=== PATIENT | male | born 1985 | race Caucasian/White ===

== ENCOUNTER 2021-07-04 16:31 | Emergency (ER) | payer SELFPAY ==
[~2021-07-04] VITALS: Ht 182.9 cm; Wt 83.6 kg
--- NOTE | 2021-07-04 17:17 | EKG ---
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
[2021-07-04] MEDS ORDERED: LORazepam 1 MG TABLET PO ONE (17:30)
[2021-07-04 17:31] LABS: CALCIUM 9.6 mg/dL (8.5-10.1); GFR 85.5; POTASSIUM 3.8 mmol/L (3.5-5.1)
[2021-07-04 17:33] LABS: BASO % 0 % (0-3); EOS % 0 % (0-3); HEMATOCRIT 44.4 % (39.0-53.0); LYMPH # 1.3 x10^3/uL (1.0-4.8); LYMPH % 17 % (24-48); MEAN CORPUSCULAR HEMOGLOBIN 31 pg (25-35); MEAN CORPUSCULAR HGB CONC 34 g/dL (31-37); MEAN CORPUSCULAR VOLUME 93 fL (79-100); MONO # 0.5 x10^3/uL (0.0-1.1); MONO % 7 % (0-9); NEUT # 5.8 x10^3uL (1.8-7.7); NEUT % 76 % (31-73); PLATELET COUNT 230 x10^3/uL (140-400); RED BLOOD COUNT 4.77 x10^6/uL (4.30-5.70); RED CELL DISTRIBUTION WIDTH 13.2 % (11.5-14.5); WHITE BLOOD COUNT 7.6 x10^3/uL (4.0-11.0)
[2021-07-04 17:45] VITALS: BP 134/51
[2021-07-04] MEDS ORDERED: LORA-254 PO (17:56)
--- NOTE | 2021-07-04 17:58 | PHYS DOC ---
Past History Past Surgical History: No Surgical History (ROD HAMILTON) Alcohol Use: None (ROD HAMILTON) General Adult EDM: Chief Complaint: Palpitations HPI: HPI: Patient is a 36 year old male who presents with palpitations. Patient states for the past week, he has intermittent palpitations that last 10 to 15 minutes at random times throughout the day. Additionally, he reports a 3-day history of intermittent left upper extremity numbness that goes from his wrist up to his shoulder. He states that he tends to "worry a lot in general," and that he has been under more stress recently. He was seen at urgent care today for evaluation of palpitations, but was not satisfied with the work-up provided. He was offered medication to take whenever he feels palpitations, but he was reluctant to take the medication without having further cardiac evaluation. Patient denies diaphoresis, headache, chest pain, shortness of breath, cough. Patient has no other complaints at this time. (ROD HAMILTON) Review of Systems: Review of Systems: Constitutional: Denies fever or chills Eyes: Denies change in visual acuity HENT: Denies nasal congestion or sore throat Respiratory: See HPI Cardiovascular: See HPI GI: Denies abdominal pain, nausea, vomiting, bloody stools or diarrhea Musculoskeletal: Denies back pain or joint pain Neurologic: Denies headache, focal weakness or sensory changes Psychiatric: See HPI (ROD HAMILTON) Current Medications: Current Meds: Current Medications Medications (Trade) Dose Ordered Sig/Lena Start Time Stop Time Status Last Admin Dose Admin Lorazepam (Ativan) 2 mg 1X ONCE 07/04/21 17:30 07/04/21 17:31 DC 07/04/21 17:44 2 MG (ROD HAMILTON) Allergies: Allergies: Allergies Coded Allergies Type Severity Reaction Last Updated Verified No Known Drug Allergies 07/04/21 No (ROD HAMILTON) Physical Exam: PE: Constitutional: Well developed, well nourished, non-toxic appearance. Neck: Normal range of motion, no tenderness, supple, no stridor. Cardiovascular:Heart rate regular rhythm, no murmur. Lungs & Thorax: Bilateral breath sounds clear to auscultation. Skin: Warm, dry, no erythema, no rash. Extremities: No tenderness, no cyanosis, no clubbing, ROM intact, no edema. Neurologic: Alert and oriented X 3, normal motor function, normal sensory function, no focal deficits noted. Psychologic: Anxious affect, judgement normal, mood normal. (ROD HAMILTON) Current Patient Data: Labs: Laboratory Tests Test 07/04/21 16:52 White Blood Count 7.6 x10^3/uL (4.0-11.0) Red Blood Count 4.77 x10^6/uL (4.30-5.70) Hemoglobin 15.0 g/dL (13.0-17.5) Hematocrit 44.4 % (39.0-53.0) Mean Corpuscular Volume 93 fL (79-100) Mean Corpuscular Hemoglobin 31 pg (25-35) Mean Corpuscular Hemoglobin Concent 34 g/dL (31-37) Red Cell Distribution Width 13.2 % (11.5-14.5) Platelet Count 230 x10^3/uL (140-400) Neutrophils (%) (Auto) 76 % (31-73) H Lymphocytes (%) (Auto) 17 % (24-48) L Monocytes (%) (Auto) 7 % (0-9) Eosinophils (%) (Auto) 0 % (0-3) Basophils (%) (Auto) 0 % (0-3) Neutrophils # (Auto) 5.8 x10^3uL (1.8-7.7) Lymphocytes # (Auto) 1.3 x10^3/uL (1.0-4.8) Monocytes # (Auto) 0.5 x10^3/uL (0.0-1.1) Eosinophils # (Auto) 0.0 x10^3/uL (0.0-0.7) Basophils # (Auto) 0.0 x10^3/uL (0.0-0.2) Sodium Level 137 mmol/L (136-145) Potassium Level 3.8 mmol/L (3.5-5.1) Chloride Level 101 mmol/L (98-107) Carbon Dioxide Level 26 mmol/L (21-32) Anion Gap 10 (6-14) Blood Urea Nitrogen 15 mg/dL (8-26) Creatinine 1.0 mg/dL (0.7-1.3) Estimated GFR (Cockcroft-Gault) 85.5 Glucose Level 103 mg/dL (70-99) H Calcium Level 9.6 mg/dL (8.5-10.1) Creatine Kinase Pending Creatine Kinase MB (Mass) Pending Creatine Kinase MB Relative Index Pending Troponin I Quantitative < 0.017 ng/mL (0-0.055) Vital Signs: Vital Signs Date Time Temp Pulse Resp B/P (MAP) Pulse Ox O2 Delivery O2 Flow Rate FiO2 07/04/21 16:35 98.1 64 22 143/78 (99) 99 Room Air (ROD HAMILTON) EKG: EKG: EKG Interpreted by Dr. Cuba: Regular rate 70bpm and rhythm with no ectopic beats. No concerning ST-T wave changes. Regular QR interval. (ROD HAMILTON) Heart Score: C/O Chest Pain: No (ROD HAMILTON) Course & Med Decision Making: Course & Med Decision Making Pertinent Labs and Imaging studies reviewed. (See chart for details) Patient history and presentation is suggestive of anxiety versus cardiac etiology. Cardiac enzymes and EKG will be evaluated. Patient will be provided Ativan in the department. Patient seems self-aware and the fact that he is likely experiencing an anxiety attack however seeks reassurance that it is not cardiac related. He was reassured that we will rule out any acute or life- threatening cardiac illness. Patient was informed of laboratory findings and provided with referral to Dr. Milan for primary care. Patient is agreeable to discharge plan. (ROD HAMILTON) Dragon Disclaimer: Dragon Disclaimer: This electronic medical record was generated, in whole or in part, using a voice recognition dictation system. (ROD HAMILTON) Departure Departure: Impression: Primary Impression: Anxiety Disposition: HOME / SELF CARE / HOMELESS Condition: STABLE Referrals: PCP,NO (PCP) JOE ESCALONA MD Patient Instructions: Anxiety and Panic Attacks, [id number] Additional Instructions: A primary care physician contact phone number was provided. His name is Dr. Lutz and is very familiar with [facility]. You may call to schedule an appointment with him at your convenience. He will have access to your records from your visit today, so that he may address your complaints. Pl ease return to the emergency department if you experience chest pain or have a return of symptoms. Scripts Lorazepam (ATIVAN) 1 Mg Tablet 1 TAB PO PRN PRN for ANXIETY MDD 2 Tablet(s), #10 TAB 0 Refills Take 1 tablet by mouth as needed for anxiety. Do not take more than 2 tablets in 1 day. Prov: ROD HAMILTON 07/04/21 Attending Signature Attending Signature I have participated in the care of this patient and I have reviewed and agree with all pertinent clinical information above including history, exam, and recommendations. (REY NASCIMENTO MD) ROD HAMILTON Jul 04, 2021 17:58 REY NASCIMENTO MD Jul 08, 2021 00:20
== END 2021-07-04 18:20 | disposition home or self-care (01) ==
LOC: ER 16:36
DX: F41.9 Anxiety disorder, unspecified (principal)
CPT/HCPCS: 36415; 80048; 82553; 84484; 85025; 93005; 99284

== ENCOUNTER → 2021-07-06 | Outpatient (CLI) | payer SELFPAY ==
[2021-07-04 17:45] VITALS: BP 134/51
[~2021-07-06] MED LIST: LORA-254 PO
--- NOTE | 2021-07-06 13:19 | RAD ---
Examination: Left Lower Extremity Venous Doppler Ultrasound History: Left leg swelling Comparison: None Procedure: Stanford scale, color flow 2D and spectal waveform analysis images are obtained with and witho ut compression in the area of the common femoral vein, superficial femoral vein - femoral vein juncti on, main femoral vein (superficial femoral vein) and popliteal vein. Veins of the proximal calf are a lso imaged. Findings: There is normal duplex flow, color flow and compressibility of all visualized vein segments. No evide nce of deep venous thrombus is present. Impression: No evidence of DVT in the left lower extremity venous system. Electronically signed by: Karthik Hector MD (07/06/2021 1:17 PM) [id number]
== END ==
LOC: US 12:31
PROVIDERS: ATTEND Family Medicine
DX: R22.42 Localized swelling, mass and lump, left lower limb (principal)
CPT/HCPCS: 93971

== ENCOUNTER 2021-10-22 07:58 | Emergency (ER) | payer SELFPAY ==
[~2021-10-22] VITALS: Ht 182.9 cm; Wt 83.6 kg
[2021-10-22 09:55] VITALS: BP 134/78
--- NOTE | 2021-10-22 11:12 | RAD ---
EXAM: Right lower extremity venous Doppler sonogram. HISTORY: Paresthesia. Pain and swelling. TECHNIQUE: Stanford scale and color Doppler sonographic evaluation of the right lower extremity veins wit h spectral waveform analysis was performed. FINDINGS: There is normal color flow, normal compressibility and there are normal spectral waveforms in the common femoral, superficial femoral, popliteal, posterior tibial and greater saphenous veins. IMPRESSION: No Doppler evidence of lower extremity deep venous thrombosis. Electronically signed by: Lindsay Wilkins MD (10/22/2021 11:10 AM) [id number]
--- NOTE | 2021-10-22 11:23 | PHYS DOC ---
Past History Past Medical History: No Pertinent History (BEN CARTER APRN) Past Surgical History: No Surgical History (BEN CARTER APRN) Alcohol Use: None (BEN CARTER APRN) General Adult EDM: Chief Complaint: LOWER EXT PAIN HPI: HPI: Patient is a 36-year-old male that presents today with a weird sensation in his right leg. Patient states that he has had sensations over the last 6 months in his right leg he said last night and earlier this morning he started experiencing the same thing and he decided to come to the emergency department to have it evaluated. Patient denies trauma. Patient states he feels a twinge and a tight feeling in his leg he states that the skin does change color but goes right back to normal as the sensation resides. Patient states that he has been having palpitations on and off for the last couple months and has been following up with his doctor at [facility] and they are godinez pposed to do a Holter monitor he is a do not had that done as of yet. Patient denies chest pain, shortness of air, fever or chills. (BEN CARTER APRN) Review of Systems: Review of Systems: Constitutional: Denies fever or chills Eyes: Denies change in visual acuity HENT: Denies nasal congestion or sore throat Respiratory: Denies cough or shortness of breath Cardiovascular: Denies chest pain or edema GI: Denies abdominal pain, nausea, vomiting, bloody stools or diarrhea : Denies dysuria Musculoskeletal: Right leg discomfort Integument: Denies rash Neurologic: Denies headache, focal weakness or sensory changes Endocrine: Denies polyuria or polydipsia Lymphatic: Denies swollen glands Psychiatric: Denies depression or anxiety (BEN CARTER APRN) Allergies: Allergies: Allergies Coded Allergies Type Severity Reaction Last Updated Verified No Known Drug Allergies 07/04/21 No (BEN CARTER APRN) Physical Exam: PE: Constitutional: Well developed, well nourished, no acute distress, non-toxic appearance. [] HENT: Normocephalic, atraumatic, bilateral external ears normal, oropharynx moist, no oral exudates, nose normal. [] Eyes: PERRLA, EOMI, conjunctiva normal, no discharge. [] Neck: Normal range of motion, no tenderness, supple, no stridor. [] Cardiovascular:Heart rate regular rhythm, no murmur [] Lungs & Thorax: Bilateral breath sounds clear to auscultation [] Abdomen: Bowel sounds normal, soft, no tenderness, no masses, no pulsatile masses. [] Skin: Warm, dry, no erythema, no rash. [] Back: No tenderness, no CVA tenderness. [] Extremities: No tenderness noted with palpation dorsalis pedis and posterior tib pulse is 2+, no edema noted no pain at this time. No lacerations, abrasions, contusions, or ecchymosis noted. Neurologic: Alert and oriented X 3, normal motor function, normal sensory function, no focal deficits noted. [] Psychologic: Affect normal, judgement normal, mood normal. [] (BEN CARTER APRN) Current Patient Data: Vital Signs: Vital Signs Date Time Temp Pulse Resp B/P (MAP) Pulse Ox O2 Delivery O2 Flow Rate FiO2 10/22/21 09:55 97.5 67 18 134/78 (96) 97 Room Air (BEN CARTER APRN) EKG: EKG: [] (BEN CARTER APRN) Radiology/Procedures: Radiology/Procedures: REASON: RT FOOT TINGLING PROCEDURE: VENOUS LOWER EXTREMITY RIGHT EXAM: Right lower extremity venous Doppler sonogram. HISTORY: Paresthesia. Pain and swelling. TECHNIQUE: Stanford scale and color Doppler sonographic evaluation of the right lower extremity veins with spectral waveform analysis was performed. FINDINGS: There is normal color flow, normal compressibility and there are normal spectral waveforms in the common femoral, superficial femoral, popliteal, posterior tibial and greater saphenous veins. IMPRESSION: No Doppler evidence of lower extremity deep venous thrombosis. Electronically signed by: Lindsay Wilkins MD (10/22/2021 11:10 AM) [id number][] (BEN CARTER APRN) Heart Score: C/O Chest Pain: N/A Risk Factors: Risk Factors: DM, Current or recent (<one month) smoker, HTN, HLP, family history of CAD, obesity. Risk Scores: Score 0 - 3: 2.5% MACE over next 6 weeks - Discharge Home Score 4 - 6: 20.3% MACE over next 6 weeks - Admit for Clinical Observation Score 7 - 10: 72.7% MACE over next 6 weeks - Early Invasive Strategies (BEN CARTER APRN) Course & Med Decision Making: Course & Med Decision Making Pertinent Labs and Imaging studies reviewed. (See chart for details) 1120 assessed patient in the triage area patient in no acute distress did review radiological studies with him and informed him that there was no evidence of a DVT at this time. Patient is to follow-up with Dr. Lutz by phone this afternoon get an appointment as soon as possible. Patient is agreeable with plan of care and verbalizes understanding. (BEN CARTER APRN) Dragon Disclaimer: Dragon Disclaimer: This electronic medical record was generated, in whole or in part, using a voice recognition dictation system. (BEN CARTER APRN) Attending Co-Sign The patient was seen and interviewed as well as examined at the bedside. The chart was reviewed. The case was discussed. Agree with the plan of care. (CARLOTTA STEINBERG DO) Departure Departure: Impression: Primary Impression: Leg pain Qualified Codes: M79.604 - Pain in right leg Disposition: HOME / SELF CARE / HOMELESS Condition: STABLE Referrals: JOE ESCALONA MD (PCP) Patient Instructions: Musculoskeletal Pain Additional Instructions: Follow-up with Dr. Lutz soon as possible. BEN CARTER APRN Oct 22, 2021 11:23 CARLOTTA STEINBERG DO Oct 23, 2021 06:31
== END 2021-10-22 11:26 | disposition home or self-care (01) ==
LOC: ER 07:58
DX: M79.604 Pain in right leg (principal); R00.2 Palpitations
CPT/HCPCS: 93971; 99284

== ENCOUNTER 2021-10-31 21:34 | Emergency (ER) | payer SELFPAY ==
[~2021-10-31] VITALS: Ht 182.9 cm; Wt 83.6 kg
--- NOTE | 2021-10-31 21:43 | PHYS DOC ---
Past History Past Medical History: No Pertinent History Past Surgical History: No Surgical History Alcohol Use: None Adult General Chief Complaint Chief Complaint: RAPID HEART RATE HPI HPI Patient is a 36-year-old male presenting via POV for palpitations. Reports he was at rest approximately 1 hour prior to arrival when he started experiencing generalized chest palpitations. Nothing known made better or worse. Patient denied any pain but reportedly felt anxious about the feelings prompting him to come in for evaluation. States he read online that it could be something with his aorta and he got freaked out after reading this article. Denies any significant medical issues but does admit distant history of methamphetamine abuse. He currently has an event monitor in place that has been present for past week without any reported events. Admits to smoking weed otherwise no tobacco, alcohol or other illicit drug use. States he is asymptomatic in ER just anxious about his aorta Review of Systems Review of Systems Fourteen body systems of review of systems have been reviewed. See HPI for pertinent positives and negative responses, other reynolds all other systems are negative, non-pertinent or non-contributory Allergies Allergies Allergies Coded Allergies Type Severity Reaction Last Updated Verified No Known Drug Allergies 07/04/21 No Physical Exam Physical Exam Constitutional: Well developed, well nourished, no acute distress, non-toxic appearance. Extensive odor of THC present HENT: Normocephalic, atraumatic, bilateral external ears normal, oropharynx moist, no oral exudates, nose normal. Eyes: PERRLA, EOMI, conjunctiva normal, no discharge. Neck: Normal range of motion, no tenderness, supple, no stridor. Cardiovascular: Heart rate regular, sinus rhythm, no murmurs rubs or gallops Lungs & Thorax: Bilateral breath sounds clear to auscultation Abdomen: Bowel sounds normal, soft, no tenderness, no masses, no pulsatile masses. Nonsurgical abdomen, no peritoneal signs Skin: Warm, dry, no erythema, no rash. Back: No tenderness, no CVA tenderness. Extremities: No tenderness, no cyanosis, no clubbing, ROM intact, no edema. Neurologic: Alert and oriented X 3, grossly normal motor & sensory function, no focal deficits noted. Psychologic: Anxious affect and mood Current Patient Data Vital Signs Vital Signs Date Time Temp Pulse Resp B/P (MAP) Pulse Ox O2 Delivery O2 Flow Rate FiO2 10/31/21 21:46 97.8 74 18 123/74 (90) 97 Room Air Vital Signs Date Time Temp Pulse Resp B/P (MAP) Pulse Ox O2 Delivery O2 Flow Rate FiO2 10/31/21 21:46 97.8 74 18 123/74 (90) 97 Room Air EKG EKG EKG ordered and interpreted by myself at 2145 hrs. is sinus rhythm at 69 bpm, unremarkable intervals, right axis deviation, no acute ischemic findings, no STEMI Radiology/Procedures Radiology/Procedures [] Heart Score C/O Chest Pain: No Risk Factors: Risk Factors: DM, Current or recent (<one month) smoker, HTN, HLP, family hi story of CAD, obesity. Risk Scores: Risk Factors: DM, Current or recent (<one month) smoker, HTN, HLP, family history of CAD, obesity. Course & Med Decision Making Course & Med Decision Making ABCs unremarkable HPI physical exam and electrocardiogram nonconcerning for any emergent or surgical issues Patient in middle of extensive outpatient work-up with monitor placed. He presents extremely anxious, extremely high and paranoid that his feelings of pa lpitations are related to his aorta I disclosed low likelihood of such pathology ongoing given his asymptomatic status at time of ER arrival. I discussed utility of further ER work-up that included blood work and imaging but ultimately this was deferred to outpatient setting. Strict return precautions discussed and understood by patient. Illicit drug abuse cessation advised prior to ER departure Dragon Disclaimer Dragon Disclaimer This electronic medical record was generated, in whole or in part, using a voice recognition dictation system. Departure Departure: Impression: Primary Impression: Anxiety about health Disposition: 01 HOME / SELF CARE / HOMELESS Condition: STABLE Referrals: JOE ESCALONA MD (PCP) Additional Instructions: As discussed prior to ER departure, your vitals physical exam and EKG were nonco ncerning for any emergent or surgical issues. You were monitored on cardiac monitors throughout entirety of ER visit with no concerning findings. As disclosed, your presenting symptoms are likely due to anxiety. There is no indication for further diagnostic work-up and/or need for hospitalization at present. You are on appropriate outpatient management and as disclosed, it is a dvise you contact your primary care physician first thing on Tuesday to review need for close outpatient follow-up. If any concerning signs or symptoms present prior to outpatient follow-up please do not hesitate to come back for repeat evaluation. It was a pleasure to take care of you and I wish you the best going forward SHAWNA BAGLEY DO Oct 31, 2021 21:43
[2021-10-31 21:46] VITALS: BP 123/74
--- NOTE | 2021-11-01 05:53 | EKG ---
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
[2021-11-01] MEDS ORDERED: CETI10CA PO (20:27)
== END 2021-10-31 22:20 | disposition home or self-care (01) ==
LOC: ER 21:34
DX: F41.9 Anxiety disorder, unspecified (principal); F15.10 Other stimulant abuse, uncomplicated
CPT/HCPCS: 93005; 99283

== ENCOUNTER 2021-11-01 20:12 | Emergency (ER) | payer SELFPAY ==
[~2021-11-01] VITALS: Ht 188 cm; Wt 90.0 kg
[2021-11-01 20:16] VITALS: BP 138/80
[2021-11-01] MEDS ORDERED: CETI10CA PO (20:27)
--- NOTE | 2021-11-01 20:50 | PHYS DOC ---
Past History Past Medical History: No Pertinent History Additional Past Medical Histor: palpatations (TARYN FAJARDO APRN) Past Surgical History: No Surgical History (TARYN FAJARDO APRN) Alcohol Use: None Social History Narrative: Last used today (TARYN FAJARDO APRN) General Adult EDM: Chief Complaint: Neck Pain HPI: HPI: Patient is a 36-year-old male presents with anxiety. Patient is concerned he has a knot on his left shoulder. Patient denies pain. Patient was just seen here yesterday and appears to be very anxious. Patient is currently wearing a Holter monitor due to feeling like his heart has been irregular. Patient has a history of palpitations. (TARYN FAJARDO APRN) Review of Systems: Review of Systems: ROS At least 10 ROS systems have been reviewed and are negative except as documented in the HPI. General: Negative except as outlined in HPI above. Skin: Negative except as outlined in HPI above. HEENT: Negative except as outlined in HPI above. Neck: Negative except as outlined in HPI above. Respiratory: Negative except as outlined in HPI above.. Cardiovascular: Negative except as outlined in HPI above. Abdomen: Negative except as outlined in HPI above. : Negative except as outlined in HPI above. Back/MSK: Negative except as outlined in HPI above. Neuro: Negative except as outlined in HPI above. Psych: Negative except as outlined in HPI above. (TARYN FAJARDO APRN) Allergies: Allergies: Allergies Coded Allergies Type Severity Reaction Last Updated Verified No Known Drug Allergies 11/01/21 No (TARYN FAJARDO APRN) Physical Exam: PE: Constitutional: Well developed, well nourished, no acute distress, non-toxic appearance. [] HENT: Normocephalic, atraumatic, bilateral external ears normal, oropharynx mois t, no oral exudates, nose normal. [] Eyes: PERRLA, EOMI, conjunctiva normal, no discharge. [] Neck: Normal range of motion, no tenderness, supple, no stridor. [] Cardiovascular:Heart rate regular rhythm, no murmur [] Lungs & Thorax: Bilateral breath sounds clear to auscultation [] Abdomen: Bowel sounds normal, soft, no tenderness, no masses, no pulsatile masses. [] Skin: Warm, dry, no erythema, no rash. [] Back: No tenderness, no CVA tenderness. [] Extremities: Left arm tenderness, ROM intact, no edema. [] Neurologic: Alert and oriented X 3, normal motor function, normal sensory function, no focal deficits noted. [] Psychologic: Affect normal, judgement normal, mood normal. [] (TARYN FAJARDO APRN) Current Patient Data: Vital Signs: Vital Signs Date Time Temp Pulse Resp B/P (MAP) Pulse Ox O2 Delivery O2 Flow Rate FiO2 11/01/21 20:16 98.4 79 16 138/80 (99) 97 (TARYN FAJARDO APRN) EKG: EKG: [] (TARYN FAJARDO APRN) Radiology/Procedures: Radiology/Procedures: [] (TARYN FAJARDO APRN) Heart Score: C/O Chest Pain: No Risk Factors: Risk Factors: DM, Current or recent (<one month) smoker, HTN, HLP, family history of CAD, obesity. Risk Scores: Score 0 - 3: 2.5% MACE over next 6 weeks - Discharge Home Score 4 - 6: 20.3% MACE over next 6 weeks - Admit for Clinical Observation Score 7 - 10: 72.7% MACE over next 6 weeks - Early Invasive Strategies (TARYN FAJARDO APRN) Course & Med Decision Making: Course & Med Decision Making Pertinent Labs and Imaging studies reviewed. (See chart for details) [] 36-year-old male presents with anxiety and pain in his left upper arm. Patient is concerned there is a knot in his arm. Patient was also seen here yesterday in the emergency room for similar symptoms. Patient appears very anxious and appears to be on some type of substance. After discussing work-up plan with patient. Patient decided he felt better and did not want to have a work-up. No signs of trauma. Patient has full range of motion. Sensations intact. No chest pain, shortness of breath. Advised patient he needs to follow-up with his primary care physician if he is still concerned. Patient agrees with discharge plan and is hemodynamically stable upon disposition. (TARYN FAJARDO APRN) Course & Med Decision Making I was the Attending physician on the above date of service of this patient. This patient was evaluated, examined, treated, and dispositioned from the emergency department by the mid-level practitioner. Although I was working at the time , no assistance was requested. Electronically signed, Shawna Bagley DO (SHAWNA BAGLEY DO) [place] Disclaimer: [place] Disclaimer: This electronic medical record was generated, in whole or in part, using a voice recognition dictation system. (TARYN FAJARDO APRN) Departure Departure: Impression: Primary Impression: Neck and shoulder pain Disposition: HOME / SELF CARE / HOMELESS Condition: STABLE Referrals: JOE ESCALONA MD (PCP) Patient Instructions: Shoulder Pain, [id number] Additional Instructions: You were seen in the emergency room for neck and shoulder discomfort. You have decided that you felt better and did not want a work-up completed. Take ibuprofen and Tylenol at home if you have some pain. Follow-up with your PCP for further management. EMERGENCY DEPARTMENT GENERAL DISCHARGE INSTRUCTIONS Thank you for coming to [facility] (ED) today and trusting us with you care. We trust that you had a positivie experience in our Emergency Department. If you wish to speak to the department management, you may call the director at [phone]. YOUR FOLLOW UP INSTRUCTIONS ARE FOLLOWS: 1. Do you have a private Doctor? If you do not have a private doctor, please ask for a resource list of physicians or clinics that may be able to assist you with follow up care. 2. The Emergency Physician has interpreted your x-rays. The X-Ray specialist will also review them. If there is a change in the findings, you will be notified in 48 hours when at all possible. 3. A lab test or culture has been done, your results will be reviewed and you will be notified if you need a change in treatment. ADDITIONAL INSTRUCTIONS AND INFORMATION: 1. Your care today has been supervised by a physician who is specially trained in emergency care. Many problems require more than one evaluation for a complete diagnosis and treatment. We recommend that you schedule your follow up appointment as recommended to ensure complete treatment of you illness or injury. If you are unable to obtain follow up care and continue to have a problem, or if your condition worsens, we recommend that you return to the ED. 2. We are not able to safely determine your condition over the phone nor are we able to give sound medical advice over the phone. For these safety reasons, if you call for medical advice we will ask you to come to the ED for further evaluation. 3. If you have any questions regarding these discharge instructions please call the ED at [phone]. SAFETY INFORMATION: In the interest of safety, wellness, and injury prevention; we encourage you to wear your sealbelt, if you smoke; quite smoking, and we encourage family to use a protective helmet for bicycling and other sporting events that present an increased risk for head injury. IF YOUR SYMPTOMS WORSEN OR NEW SYMPTOMS DEVELOP, OR YOU HAVE CONCERNS ABOUT YOUR CONDITION; OR IF YOUR CONDITION WORSENS WHILE YOU ARE WAITING FOR YOUR FOLLOW UP APPOINTMENT; EITHER CONTACT YOUR PRIMARY CARE DOCTOR, THE PHYSICIAN WHOSE NAME AND NUMBER YOU WERE GIVEN, OR RETURN TO THE ED IMMEDIATELY. TARYN FAJARDO APRN Nov 01, 2021 20:50 SHAWNA BAGLEY DO Nov 03, 2021 07:35
== END 2021-11-01 21:00 | disposition home or self-care (01) ==
LOC: ER 20:12
DX: M54.2 Cervicalgia (principal); M25.512 Pain in left shoulder; F41.9 Anxiety disorder, unspecified
CPT/HCPCS: 99282

== ENCOUNTER 2021-11-06 08:04 | Emergency (ER) | payer SELFPAY ==
[~2021-11-06] VITALS: Ht 188 cm; Wt 90.0 kg
[~2021-11-06 08:04] MED LIST changes: +CETI10CA PO
[2021-11-06 08:25] VITALS: BP 122/85
--- NOTE | 2021-11-06 08:45 | PHYS DOC ---
Past History Past Medical History: No Pertinent History Additional Past Medical Histor: palpatations Past Surgical History: No Surgical History Alcohol Use: None General Adult EDM: Chief Complaint: SKIN PROBLEM HPI: HPI: 36-year-old male presents with painful lesions on the posterior his right leg. Patient states that last couple days as large red nodule has appeared. There are now several other smaller, funeral home director colored areas around this same way as the primary lesion 2 days ago. They feel like there is a nodule underneath the skin. The skin is flat with a dark reddish-nice color lesion. The lesions are 1 to 3 cm in diameter. He states the pain in the area feels like a sharp sensation that is mild to moderate. He denies any trauma. He has never had this before. Denies any new or unusual exposures. No foreign travel. He charito es any other symptoms of illness at this time. Review of Systems: Review of Systems: Constitutional: Denies fever or chills Eyes: Denies change in visual acuity HENT: Denies nasal congestion or sore throat Respiratory: Denies cough or shortness of breath Cardiovascular: Denies chest pain or edema GI: Denies abdominal pain, nausea, vomiting, bloody stools or diarrhea : Denies dysuria Musculoskeletal: Denies back pain or joint pain Integument: Rash right posterior thigh Neurologic: Denies headache, focal weakness or sensory changes Endocrine: Denies polyuria or polydipsia Lymphatic: Denies swollen glands Psychiatric: Denies depression or anxiety Allergies: Allergies: Allergies Coded Allergies Type Severity Reaction Last Updated Verified No Known Drug Allergies 11/06/21 No Physical Exam: PE: Constitutional: Well developed, well nourished, no acute distress, non-toxic appearance. [] HENT: Normocephalic, atraumatic, bilateral external ears normal, oropharynx moist, no oral exudates, nose normal. [] Eyes: PERRLA, EOMI, conjunctiva normal, no discharge. [] Neck: Normal range of motion, no tenderness, supple, no stridor. [] Cardiovascular:Heart rate regular rhythm, no murmur [] Lungs & Thorax: Bilateral breath sounds clear to auscultation [] Abdomen: Bowel sounds normal, soft, no tenderness, no masses, no pulsatile masses. [] Skin: 1 to 3 cm flat, red to purplish patches on the posterior right thigh, mild tenderness to palpation, no warmth. [] Back: No tenderness, no CVA tenderness. [] Extremities: No tenderness, no cyanosis, no clubbing, ROM intact, no edema. [] Neurologic: Alert and oriented X 3, normal motor function, normal sensory function, no focal deficits noted. [] Psychologic: Affect normal, judgement normal, mood normal. [] Current Patient Data: Vital Signs: Vital Signs Date Time Temp Pulse Resp B/P (MAP) Pulse Ox O2 Delivery O2 Flow Rate FiO2 11/06/21 08:25 97.5 90 18 122/85 (97) 97 EKG: EKG: [] Radiology/Procedures: Radiology/Procedures: [] Heart Score: C/O Chest Pain: N/A Risk Factors: Risk Factors: DM, Current or recent (<one month) smoker, HTN, HLP, family history of CAD, obesity. Risk Scores: Score 0 - 3: 2.5% MACE over next 6 weeks - Discharge Home Score 4 - 6: 20.3% MACE over next 6 weeks - Admit for Clinical Observation Score 7 - 10: 72.7% MACE over next 6 weeks - Early Invasive Strategies Course & Med Decision Making: Course & Med Decision Making Pertinent Labs and Imaging studies reviewed. (See chart for details) The patient's exam is consistent with erythema nodosum. The patient has no other symptoms of illness. This could be idiopathic in nature. I have told the patient to take ibuprofen 3 times a day for the next several days. He will need to follow-up with his primary care physician to make sure they resolve. Further investigation for underlying autoimmune disease may be warranted at that time. Chest x-ray is negative for acute findings. He is stable for discharge at this time. [] Dragon Disclaimer: Dragon Disclaimer: This electronic medical record was generated, in whole or in part, using a voice recognition dictation system. Departure Departure: Impression: Primary Impression: Erythema nodosum Disposition: HOME / SELF CARE / HOMELESS Condition: STABLE Referrals: JOE ESCALONA MD (PCP) Patient Instructions: Erythema Nodosum-Brief CARLOTTA STEINBERG DO Nov 06, 2021 08:45
--- NOTE | 2021-11-06 09:02 | RAD ---
EXAMINATION: Chest radiograph. VIEWS: 1 COMPARISON: None. INDICATION:36 years, Male, rash on leg, evaluate for TB, sarcoidosis. FINDINGS: Normal cardiomediastinal silhouette. No focal consolidation. No pleural effusion or pneumothorax. No acute osseous process. IMPRESSION: No acute cardiopulmonary process. Electronically signed by: Paul Worthington MD (11/06/2021 9:00 AM) [id number]
== END 2021-11-06 09:13 | disposition home or self-care (01) ==
LOC: ER 08:04
DX: L52 Erythema nodosum (principal)
CPT/HCPCS: 71045; 99283

== ENCOUNTER 2021-11-16 19:42 | Emergency (ER) | payer SELFPAY ==
[~2021-11-16] VITALS: Ht 182.9 cm; Wt 72.0 kg
--- NOTE | 2021-11-16 19:55 | PHYS DOC ---
Past History Past Medical History: No Pertinent History Additional Past Medical Histor: palpatations Past Surgical History: No Surgical History Alcohol Use: None General Adult EDM: Chief Complaint: HYPERTENSION HPI: HPI: ".. I ve been under a lot of stress.. and my BP was up at [facility].. but now it is down.. I did take one my anxiety meds..." Patient is a 36 year old male who presents with above hx and complaints of hypertension. Patient does have a history of family stress with his ,, worried about his health. Pt. follows with Dr. Barriga. Patient does not smoke tobacco, vape, use illicit IV drugs. Patient does use marijuana. There is family history of hypertension. Patient has not purchased a personal blood pressure cuff for home yet. Patient encouraged to do so to keep a record of his blood pressure at least twice a day. Patient take blood pressure cuff with you on follow-up with Dr. Lutz compared to readings with blood pressures in the Dr. Escalona's office. At this time feel starting a blood pressure meds as appropriate. Patient's blood pressure is 110/76 and the ED. Review of Systems: Review of Systems: Constitutional: Denies fever or chills Eyes: Denies change in visual acuity HENT: Denies nasal congestion or sore throat Respiratory: Denies cough or shortness of breath Cardiovascular: Denies chest pain or edema. Complaints of hypertension GI: Denies abdominal pain, nausea, vomiting, bloody stools or diarrhea : Denies dysuria Musculoskeletal: Denies back pain or joint pain Integument: Denies rash Neurologic: Denies headache, focal weakness or sensory changes Endocrine: Denies polyuria or polydipsia Lymphatic: Denies swollen glands Psychiatric: anxiety and concern over elevated bp at [facility] Family History: Family History: Family history of hypertension Current Medications: Current Meds: See nursing for home meds Allergies: Allergies: Allergies Coded Allergies Type Severity Reaction Last Updated Verified No Known Drug Allergies 11/06/21 No Physical Exam: PE: Constitutional: Well developed, well nourished, no acute distress, non-toxic ap pearance. [] HENT: Normocephalic, atraumatic, bilateral external ears normal, oropharynx moist, no oral exudates, nose normal. [] Eyes: PERRLA, EOMI, conjunctiva normal, no discharge. [] Neck: Normal range of motion, no tenderness, supple, no stridor. [] Cardiovascular:Heart rate regular rhythm, no murmur [] Lungs & Thorax: Bilateral breath sounds equal apex auscultation [] Abdomen: Bowel sounds normal, soft, no tenderness, no masses, no pulsatile masses. [] Skin: Warm, dry, no erythema, no rash. [] Back: No tenderness, no CVA tenderness. [] Extremities: No tenderness, no cyanosis, no clubbing, ROM intact, no edema. [] Neurologic: Alert and oriented X 3, normal motor function, normal sensory function, no focal deficits noted. [] Psychologic: Affect anxious, judgement normal, mood normal. [] EKG: EKG: [] Radiology/Procedures: Radiology/Procedures: [] Heart Score: C/O Chest Pain: N/A Risk Factors: Risk Factors: DM, Current or recent (<one month) smoker, HTN, HLP, family history of CAD, obesity. Risk Scores: Score 0 - 3: 2.5% MACE over next 6 weeks - Discharge Home Score 4 - 6: 20.3% MACE over next 6 weeks - Admit for Clinical Observation Score 7 - 10: 72.7% MACE over next 6 weeks - Early Invasive Strategies Course & Med Decision Making: Course & Med Decision Making Pertinent Labs and Imaging studies reviewed. (See chart for details) Patient buy blood pressure cuff meter readings at least twice a day. Keep a record readings. Take blood pressure cuff with him on follow-up with Dr. Escalona. Compare its readings with a doctor's office readings. Follow-up primary care. Encourage patient not smoke. Return if any concerns. ImpressionL 1. Hx of life stresses 2. HTN- reading today [] Dragon Disclaimer: Dragon Disclaimer: This electronic medical record was generated, in whole or in part, using a voice recognition dictation system. Departure Departure: Referrals: JOE ESCALONA MD (PCP) [place] Disclaimer This chart was dictated in whole or in part using Voice Recognition software in a busy, high-work load, and often noisy Emergency Department environment. It may contain unintended and wholly unrecognized errors or omissions. REY NASCIMENTO MD Nov 16, 2021 19:55
[2021-11-16 20:37] VITALS: BP 124/72
== END 2021-11-16 21:00 | disposition home or self-care (01) ==
LOC: ER 19:42
DX: I10 Essential (primary) hypertension (principal)
CPT/HCPCS: 99281

== ENCOUNTER 2021-11-21 00:10 | Emergency (ER) | payer SELFPAY ==
[~2021-11-21] VITALS: Ht 188 cm; Wt 87.1 kg
[2021-11-21 00:28] VITALS: BP 155/84
--- NOTE | 2021-11-21 00:49 | PHYS DOC ---
Past History Past Medical History: No Pertinent History Additional Past Medical Histor: on a panel monitor, poor historian Past Surgical History: No Surgical History Alcohol Use: Occasionally Adult General Chief Complaint Chief Complaint: MULTIPLE COMPLAINTS HPI HPI Patient is an otherwise healthy 36-year-old male who presents with multiple complaints and nothing real specific outside of he thinks he has felt his heartbeat over the last couple of days. States that his primary care physician diagnosed him with paroxysmal A. fib and put him on a heart monitor over the last month. Denies any recent travel, traumas, illnesses, fevers, chest pain, shortness of breath, abdominal pain, nausea, vomiting, diarrhea. Denies any numbness/weakness/tingling. States he is eating and drinking normally. States he is making urine and stool normally for him. Denies any alcohol or drug use. Review of Systems Review of Systems Review of systems otherwise unremarkable except noted in HPI Allergies Allergies Allergies Coded Allergies Type Severity Reaction Last Updated Verified No Known Drug Allergies 11/06/21 No Physical Exam Physical Exam Constitutional: Well developed, well nourished, no acute distress, non-toxic appearance. [] HENT: Normocephalic, atraumatic, bilateral external ears normal, oropharynx moist, no oral exudates, nose normal. [] Eyes: conjunctiva normal, no discharge. [] Neck: Normal range of motion, no tenderness, supple, no stridor. [] Cardiovascular:Heart rate regular rhythm, no murmur [] Lungs & Thorax: Bilateral breath sounds clear to auscultation [] Abdomen: no tenderness, Skin: Warm, dry, no erythema, no rash. [] Extremities: no cyanosis, no clubbing, ROM intact, no edema. [] Neurologic: Alert and oriented X 3, normal motor function, normal sensory function, able to sit, stand and walk without issue no focal deficits noted. [] Psychologic: Affect normal, judgement normal, mood normal. [] EKG EKG [] Radiology/Procedures Radiology/Procedures [] Heart Score C/O Chest Pain: No Risk Factors: Risk Factors: DM, Current or recent (<one month) smoker, HTN, HLP, family history of CAD, obesity. Risk Scores: Risk Factors: DM, Current or recent (<one month) smoker, HTN, HLP, family history of CAD, obesity. Course & Med Decision Making Course & Med Decision Making Patient is a 36-year-old male who presents with multiple complaints. States he thinks he felt his heart beating harder over the last couple of days. Vital signs not concerning. Physical exam noted above. EKG with a normal rate, normal rhythm, normal QRS and no STEMI. Discussed all findings with patient. Advised to follow-up on Tuesday with primary care physician to discuss ED visit. Gave strict return precautions to the ED. Patient grateful, verbalized understanding and agreed with plan of discharge. [] Dragon Disclaimer Dragon Disclaimer This electronic medical record was generated, in whole or in part, using a voice recognition dictation system. Departure Departure: Impression: Primary Impression: Tachycardia, unspecified Disposition: HOME / SELF CARE / HOMELESS Condition: GOOD Referrals: JOE ESCALONA MD (PCP) Patient Instructions: Arrhythmia Categories, Cardiac Arrhythmia Additional Instructions: Thank you for coming into the emergency department tonight and allowing us to take care of you. Please read the attached information carefully to go over things we discussed. It is very important you follow-up on Tuesday with your primary care physician to discuss your ED visit and need for further evaluation and treatment. Please come back to the emergency department immediately with any of the new or concerning symptoms that we discussed. MARK EPSTEIN MD Nov 21, 2021 00:49
--- NOTE | 2021-11-21 01:00 | EKG ---
[address] [address] Test Date: 2021-11-21 Test Time: 00:47:50 Pat Name: TIN OSULLIVAN Department: Room: Gender: M Field Liability Generalist: : 1985 Requested By: MARK EPSTEIN Order Number: [id number] Reading MD: Garyr Carreon MD Measurements Intervals Sodus Rate: 66 P: 75 AK: 180 QRS: 93 QRSD: 96 T: 51 QT: 384 QTc: 404 Interpretive Statements SINUS RHYTHM Electronically Signed On 11-23-2021 8:26:25 INTERMISSION COORDINATOR by Garry Carreon MD
== END 2021-11-21 01:02 | disposition home or self-care (01) ==
LOC: ER 00:10
DX: R00.0 Tachycardia, unspecified (principal); I48.91 Unspecified atrial fibrillation
CPT/HCPCS: 93005; 99283

== ENCOUNTER 2021-11-23 09:06 | Emergency (ER) | payer SELFPAY ==
[~2021-11-23] VITALS: Ht 188 cm; Wt 90.0 kg
[2021-11-23 09:15] VITALS: BP 119/78
--- NOTE | 2021-11-23 09:39 | PHYS DOC ---
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 Patient is well-known to the emergency department currently having 4 visits in the month of November 2021 patient states he noticed it last night he has been rubbing it and he is concerned it could be something of an issue. No chest pain, no shortness of air, no numbness or tingling in his hands, no blurred vision or double vision. (BEN CARTER APRN) Review of Systems: Review of Systems: Constitutional: Denies fever or chills Eyes: Denies change in visual acuity HENT: Denies nasal congestion or sore throat Respiratory: Denies cough or shortness of breath Cardiovascular: Denies chest pain or edema GI: Denies abdominal pain, nausea, vomiting, bloody stools or diarrhea : Denies dysuria Musculoskeletal: Denies back pain or joint pain Integument: Reddened and firm area left AC Neurologic: Denies headache, focal weakness or sensory changes Endocrine: Denies polyuria or polydipsia Lymphatic: Denies swollen glands Psychiatric: Denies depression or anxiety (BEN CARTER APRN) Allergies: Allergies: Allergies Coded Allergies Type Severity Reaction Last Updated Verified No Known Drug Allergies 11/06/21 No (BEN CARTER APRN) Physical Exam: PE: Constitutional: Well developed, well nourished, no acute distress, non-toxic appearance. [] HENT: Normocephalic, atraumatic, bilateral external ears normal, oropharynx moist, no oral exudates, nose normal. [] Eyes: PERRLA, EOMI, conjunctiva normal, no discharge. [] Neck: Normal range of motion, no tenderness, supple, no stridor. [] Cardiovascular:Heart rate regular rhythm, no murmur [] Lungs & Thorax: Bilateral breath sounds clear to auscultation [] Abdomen: Bowel sounds normal, soft, no tenderness, no masses, no pulsatile masses. [] Skin: Warm, dry, no erythema, no rash. [] Back: No tenderness, no CVA tenderness. [] Extremities: No tenderness, no cyanosis, no clubbing, ROM intact, no edema. [] Neurologic: Alert and oriented X 3, normal motor function, normal sensory function, no focal deficits noted. [] Psychologic: Affect normal, judgement normal, mood normal. [] (BEN CARTER APRN) Current Patient Data: Vital Signs: Vital Signs Date Time Temp Pulse Resp B/P (MAP) Pulse Ox O2 Delivery O2 Flow Rate FiO2 11/23/21 09:15 96.5 88 16 119/78 (92) 98 (BEN CARTER APRN) EKG: EKG: [] (BEN CARTER APRN) Radiology/Procedures: Radiology/Procedures: [] (BEN CARTER APRN) Heart Score: C/O Chest Pain: N/A Risk Factors: Risk Factors: DM, Current or recent (<one month) smoker, HTN, HLP, family history of CAD, obesity. Risk Scores: Score 0 - 3: 2.5% MACE over next 6 weeks - Discharge Home Score 4 - 6: 20.3% MACE over next 6 weeks - Admit for Clinical Observation Score 7 - 10: 72.7% MACE over next 6 weeks - Early Invasive Strategies (BEN CARTER APRN) Course & Med Decision Making: Course & Med Decision Making Pertinent Labs and Imaging studies reviewed. (See chart for details) Assessment of patient shows that patient is palpating a tendon in the AC space and he is rubbing the area so the area is reddened from him rubbing it. There is no erythema, there is no warmth, there is no drainage, there is no signs and symptoms of infection at this time. Patient denies numbness and tingling in his hand. He has no other complaints. Patient will be sent back to his primary care physician for further management of all of his concerns. (BEN CARTER APRN) Dragon Disclaimer: Dragon Disclaimer: This electronic medical record was generated, in whole or in part, using a voice recognition dictation system. (BEN CARTER APRN) Attending Co-Sign The patient was seen and interviewed as well as examined at the bedside. The chart was reviewed. The case was discussed. Agree with the plan of care. (CARLOTTA STEINBERG DO) Departure Departure: Impression: Primary Impression: Normal exam Disposition: HOME / SELF CARE / HOMELESS Condition: STABLE Referrals: JOE ESCALONA MD (PCP) Additional Instructions: Follow-up with Dr. Lutz in the next 3 to 5 days if her symptoms or not improving. BEN CARTER APRN Nov 23, 2021 09:39 CARLOTTA STEINBERG DO Nov 23, 2021 17:15
== END 2021-11-23 09:45 | disposition home or self-care (01) ==
LOC: ER 09:06
DX: R22.32 Localized swelling, mass and lump, left upper limb (principal)
CPT/HCPCS: 99281

== ENCOUNTER 2021-11-24 21:26 | Emergency (ER) | payer SELFPAY ==
[~2021-11-24] VITALS: Ht 188 cm; Wt 90.0 kg
--- NOTE | 2021-11-24 21:52 | PHYS DOC ---
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 Patient is reporting rapid heart rate that has been intermittent for several days. Patient reports that for the last 2 days he has had tingling in his left hand and at this afternoon he looked down at his left wrist and saw a bump that was pulsating. He reports that it looked like his pulse but was concerned because it has a bump on it. Patient is also reporting left-sided chest pain that has been going on for 2 to 3 days. He reports a brown productive cough, he states he had Covid 1 month ago. Patient is currently wearing a Holter monitor for atrial fibrillation he states. Patient denies shortness of breath, nausea, vomiting, sick exposures, fevers. (LOC LOGAN APRN) Review of Systems: Review of Systems: Constitutional: negative unless reported in HPI Respiratory: negative unless reported in HPI Cardiovascular: negative unless reported in HPI GI: negative unless reported in HPI Musculoskeletal: negative unless reported in HPI Integument: negative unless reported in HPI Neurologic: negative unless reported in HPI (LOC LOGAN APRN) Allergies: Allergies: Allergies Coded Allergies Type Severity Reaction Last Updated Verified No Known Drug Allergies 11/06/21 No (LOC LOGAN APRN) Physical Exam: PE: Constitutional: Well developed, well nourished, no acute distress, non-toxic appearance. [] HENT: Normocephalic, atraumatic, bilateral external ears normal, oropharynx moist, no oral exudates, nose normal. [] Eyes: PERRL, EOMI, conjunctiva normal, no discharge. [] Neck: Normal range of motion, no stridor Cardiovascular:Heart rate regular rhythm, no murmur [] Lungs & Thorax: Bilateral breath sounds clear to auscultation [] Abdomen: Bowel sounds normal, soft, no tenderness, no masses, no pulsatile masses. [] Skin: Warm, dry, no erythema, no rash. Patient has a vein to his left wrist th at has a valve which is the area concerning patient. He does not have any extremity swelling/warmth/erythema. No pain with palpation to vein. Patient has no wounds visible to his upper extremity. Back: Normal range of motion Extremities: No tenderness, no cyanosis, no clubbing, ROM intact, no edema. [] Neurologic: Alert and oriented X 3, normal motor function, normal sensory function, no focal deficits noted equal of strengths, no pronator drift, normal speech, sensation intact to bilateral upper and lower extremities as well as face. [] Psychologic: Anxious (LOC LOGAN APRN) Current Patient Data: Labs: Laboratory Tests Test 11/24/21 22:00 11/24/21 22:05 White Blood Count 7.8 x10^3/uL Red Blood Count 4.83 x10^6/uL Hemoglobin 14.9 g/dL Hematocrit 44.3 % Mean Corpuscular Volume 92 fL Mean Corpuscular Hemoglobin 31 pg Mean Corpuscular Hemoglobin Concent 34 g/dL Red Cell Distribution Width 13.6 % Platelet Count 238 x10^3/uL Neutrophils (%) (Auto) 60 % Lymphocytes (%) (Auto) 26 % Monocytes (%) (Auto) 8 % Eosinophils (%) (Auto) 5 % Basophils (%) (Auto) 1 % Neutrophils # (Auto) 4.7 x10^3uL Lymphocytes # (Auto) 2.0 x10^3/uL Monocytes # (Auto) 0.6 x10^3/uL Eosinophils # (Auto) 0.4 x10^3/uL Basophils # (Auto) 0.1 x10^3/uL Sodium Level 141 mmol/L Potassium Level 3.8 mmol/L Chloride Level 104 mmol/L Carbon Dioxide Level 28 mmol/L Anion Gap 9 Blood Urea Nitrogen 15 mg/dL Creatinine 1.1 mg/dL Estimated GFR (Cockcroft-Gault) 76.6 BUN/Creatinine Ratio 14 Glucose Level 130 mg/dL Calcium Level 8.8 mg/dL Total Bilirubin 0.5 mg/dL Aspartate Amino Transf (AST/SGOT) 19 U/L Alanine Aminotransferase (ALT/SGPT) 28 U/L Alkaline Phosphatase 66 U/L Troponin I High Sensitivity 8 ng/L Total Protein 6.9 g/dL Albumin 4.3 g/dL Albumin/Globulin Ratio 1.7 D-Dimer (Pinky) 0.21 mg/L Current Medications Medications (Trade) Dose Ordered Sig/Lena Route PRN Reason Start Time Stop Time Status Last Admin Dose Admin Sodium Chloride 1,000 ml @ 1,000 mls/hr Q1H IV 11/24/21 22:00 11/24/21 22:59 11/24/21 22:00 Vital Signs: Vital Signs Date Time Temp Pulse Resp B/P (MAP) Pulse Ox O2 Delivery O2 Flow Rate FiO2 11/24/21 21:36 97.9 84 20 119/78 (92) 97 Room Air (LOC LOGAN APRN) EKG: EKG: EKG performed by ER staff at 955 shows sinus rhythm with a rate of 77, QTc of 418, no STEMI read by Dr. Harper [] (LOC LOGAN APRN) Radiology/Procedures: Radiology/Procedures: [] (LOC LOGAN APRN) Heart Score: C/O Chest Pain: Yes HEART Score for Chest Pain: HEART Score for Chest Pain Response (Comments) Value History Slighlty/Non-Suspicious 0 Age < 45 0 Risk Factors No Risk Factors 0 Total 0 Risk Factors: Risk Factors: DM, Current or recent (<one month) smoker, HTN, HLP, family history of CAD, obesity. Risk Scores: Score 0 - 3: 2.5% MACE over next 6 weeks - Discharge Home Score 4 - 6: 20.3% MACE over next 6 weeks - Admit for Clinical Observation Score 7 - 10: 72.7% MACE over next 6 weeks - Early Invasive Strategies (LOC LOGAN APRN) Course & Med Decision Making: Course & Med Decision Making Pertinent Labs and Imaging studies reviewed. (See chart for details) [] Patient presents to the emergency department for rapid heart rate has been going on for several days as well as tingling in his left hand. Patient reports left-sided chest pain has been intermittent for 2 days. He is concerned because he saw a bump on his left wrist that was pulsating and is afraid that he may have a blood clot. Patient reports that because he is on atrial fibrillation he is at an increased risk for blood clots and is concerned that he may have developed one. I asked patient who told him that he had atrial fibrillation as our records indicate no history of atrial fibrillation and no EKGs that showed atrial fibrillation and patient states that he was told by his powertrain control systems engineer. I informed patient that the area that he is pointing to to his left wrist is a vein which is why it is pulsating and it has a valve in it which is the bump that he is seeing. Patient is upset with that response. Patient is not on any blood thinners. Patient's Wells score is -2. He does not have any warmth, redness, swelling to his upper extremity, no immobilization, no pain with palpation to the vein, no previous DVT. Work-up in the ER consisted of blood work, EKG and chest x-ray due to complaint of chest pain and rapid heart rate. While in the emergency department, patient's vital signs are stable and he is in no acute distress. Patient is very anxious in ER. Blood work was unremarkable, Ddimer negative. Delta troponins not ordered as chest pain started 2-3 days ago. CXR as read by this BEE WORKER and supervising physician did not show any obvious acute findings. Patient reports that his chest pain has resolved. I reassured patient that the bump on his vein was a valve. I advised patient to follow up with his powertrain control systems engineer tomorrow regarding his feeling of tachycardia. I discussed these findings with patient as well as treatment plan and follow up. He is agreeable to plan. I notified him of strict return precautions. (LOC LOGAN APRN) Dragon Disclaimer: Dragon Disclaimer: This electronic medical record was generated, in whole or in part, using a voice recognition dictation system. (LOC LOGAN APRN) Departure Departure: Impression: Primary Impression: Anxiety about health Additional Impression: Atypical chest pain Disposition: 01 HOME / SELF CARE / HOMELESS Condition: GOOD Referrals: JOE ESCALONA MD (PCP) Patient Instructions: Anxiety and Panic Attacks, Chest Pain (Nonspecific) Additional Instructions: You were seen in the emergency department for rapid heart rate and a bump on your left wrist as well as left hand tingling. Your workup was unremarkable, as we discussed the bump on your vein is likely a valve. Your ddimer which indicates possible blood clot was negative.You reported that your chest pain had resolved, as we discussed, it does not appear that you are experiencing an acute coronary syndrome. However, if your pain resumes you must be reevaluated in the ER. Sometimes people get tingling in their hand when they hyperventilate with anxiety. Continue taking your anxiety medications as directed. You need to follow up your powertrain control systems engineer and I advise you to contact them tomorrow and set up a follow up appointment. Continue wearing your tobacco checkout clerk. Return to the ER if you develop chest pain, shortness of breath, nausea/vomiting, high fevers refractory to treatment, dizziness/syncope, weakness to one side, dif ficulty walking, vision changes, speech changes. EMERGENCY DEPARTMENT GENERAL DISCHARGE INSTRUCTIONS Thank you for coming to [facility] (ED) today and trusting us with you care. We trust that you had a positivie experience in our Emergency Department. If you wish to speak to the department management, you may call the director at [phone]. YOUR FOLLOW UP INSTRUCTIONS ARE FOLLOWS: 1. Do you have a private Doctor? If you do not have a private doctor, please ask for a resource list of physicians or clinics that may be able to assist you with follow up care. 2. The Emergency Physician has interpreted your x-rays. The X-Ray specialist will also review them. If there is a change in the findings, you will be notified in 48 hours when at all possible. 3. A lab test or culture has been done, your results will be reviewed and you will be notified if you need a change in treatment. ADDITIONAL INSTRUCTIONS AND INFORMATION: 1. Your care today has been supervised by a physician who is specially trained in emergency care. Many problems require more than one evaluation for a complete diagnosis and treatment. We recommend that you schedule your follow up appointment as recommended to ensure complete treatment of you illness or injury. If you are unable to obtain follow up care and continue to have a problem, or if your condition worsens, we recommend that you return to the ED. 2. We are not able to safely determine your condition over the phone nor are we able to give sound medical advice over the phone. For these safety reasons, if you call for medical advice we will ask you to come to the ED for further evaluation. 3. If you have any questions regarding these discharge instructions please call the ED at [phone]. SAFETY INFORMATION: In the interest of safety, wellness, and injury prevention; we encourage you to wear your sealbelt, if you smoke; quite smoking, and we encourage family to use a protective helmet for bicycling and other sporting events that present an increased risk for head injury. IF YOUR SYMPTOMS WORSEN OR NEW SYMPTOMS DEVELOP, OR YOU HAVE CONCERNS ABOUT YOUR CONDITION; OR IF YOUR CONDITION WORSENS WHILE YOU ARE WAITING FOR YOUR FOLLOW UP APPOINTMENT; EITHER CONTACT YOUR PRIMARY CARE DOCTOR, THE PHYSICIAN WHOSE NAME AND NUMBER YOU WERE GIVEN, OR RETURN TO THE ED IMMEDIATELY. Attending Signature Attending Signature I have participated in the care of this patient and I have reviewed and agree with all pertinent clinical information above including history, exam, and recommendations. (REY HARPER MD) Dragon Disclaimer This chart was dictated in whole or in part using Voice Recognition software in a busy, high-work load, and often noisy Emergency Department environment. It may contain unintended and wholly unrecognized errors or omissions. (REY HARPER MD) LOC LOGAN APRN Nov 24, 2021 21:52 REY HARPER MD Nov 25, 2021 01:43
[2021-11-24] MEDS ORDERED: IV NORMAL SALINE 1,000ML 1,000 ML IV SCH (22:00)
--- NOTE | 2021-11-24 22:07 | EKG ---
[address] [address] Test Date: 2021-11-24 Test Time: 21:55:06 Pat Name: TIN OSULLIVAN Department: Room: Gender: M Magazine Writer: : 1985 Requested By: LOC LOGAN Order Number: [id number] Reading MD: Niles Merritt Measurements Intervals [place] Rate: 77 P: 54 WA: 166 QRS: 87 QRSD: 92 T: 38 QT: 368 QTc: 418 Interpretive Statements SINUS RHYTHM NORMAL ECG Electronically Signed On 11-25-2021 19:58:29 CABINETMAKER HELPER by Niles Merritt
[2021-11-24 22:17] LABS: BASO # 0.1 x10^3/uL (0.0-0.2); BASO % 1 % (0-3); EOS # 0.4 x10^3/uL (0.0-0.7); EOS % 5 % (0-3); HEMATOCRIT 44.3 % (39.0-53.0); HEMOGLOBIN 14.9 g/dL (13.0-17.5); LYMPH % 26 % (24-48); MEAN CORPUSCULAR HEMOGLOBIN 31 pg (25-35); MEAN CORPUSCULAR HGB CONC 34 g/dL (31-37); MEAN CORPUSCULAR VOLUME 92 fL (79-100); MONO # 0.6 x10^3/uL (0.0-1.1); MONO % 8 % (0-9); NEUT # 4.7 x10^3uL (1.8-7.7); NEUT % 60 % (31-73); PLATELET COUNT 238 x10^3/uL (140-400); RED BLOOD COUNT 4.83 x10^6/uL (4.30-5.70); RED CELL DISTRIBUTION WIDTH 13.6 % (11.5-14.5); WHITE BLOOD COUNT 7.8 x10^3/uL (4.0-11.0)
[2021-11-24 22:21] VITALS: BP 125/81
[2021-11-24 22:28] LABS: CALCIUM 8.8 mg/dL (8.5-10.1); CREATININE 1.1 mg/dL (0.7-1.3); GFR 76.6; POTASSIUM 3.8 mmol/L (3.5-5.1)
[2021-11-24 22:34] LABS: ALBUMIN 4.3 g/dL (3.4-5.0); ALBUMIN/GLOBULIN RATIO 1.7 (1.0-1.7); TOTAL BILIRUBIN 0.5 mg/dL (0.2-1.0); TOTAL PROTEIN 6.9 g/dL (6.4-8.2)
--- NOTE | 2021-11-25 00:14 | RAD ---
XR CHEST 1V INDICATION: Reason: rapid heart rate, cp / Spl. Instructions: / History: . COMPARISON STUDY: None. FINDINGS: Lungs: Normal lung volume. No pulmonary mass or consolidation. The tracheobronchial tree and hilar st ructures are normal. Pleura: No pleural effusion or pneumothorax. Heart and Mediastinum: The cardiomediastinal silhouette is normal. The great vessels of the thorax ar e normal. Bones and Soft Tissues: The bones and soft tissues are within normal limits. IMPRESSION: No acute cardiopulmonary process. Electronically signed by: Rodolfo Delgadillo MD (11/25/2021 12:12 AM) [facility]
== END 2021-11-24 23:25 | disposition home or self-care (01) ==
LOC: ER 21:26
DX: F41.9 Anxiety disorder, unspecified (principal); R07.89 Other chest pain
CPT/HCPCS: 36415; 71045; 80053; 84484; 85025; 85379; 93005; 96360; 99285; J7030

== ENCOUNTER 2021-12-02 23:36 | Emergency (ER) | payer SELFPAY ==
[~2021-12-02] VITALS: Ht 188 cm; Wt 90.0 kg
--- NOTE | 2021-12-02 23:39 | PHYS DOC ---
Past History Past Medical History: No Pertinent History Additional Past Medical Histor: on a desk monitor, poor historian Past Surgical History: No Surgical History Alcohol Use: Rarely Adult General HPI HPI Patient is a 36-year-old male with a past medical history of controlled herpes on acyclovir who presents with bumps on his ribs and legs. Denies any recent travel, traumas, illness, fevers, chest pain, shortness of breath, abdominal pain, nausea, vomiting, dysuria, hematuria or blood in stool. States he seen his primary care physician several times over the last month and was told it was most likely lymph nodes. Review of Systems Review of Systems Review of systems otherwise unremarkable except noted in HPI Allergies Allergies Allergies Coded Allergies Type Severity Reaction Last Updated Verified No Known Drug Allergies 11/06/21 No Physical Exam Physical Exam Constitutional: Well developed, well nourished, no acute distress, non-toxic appearance. [] HENT: Normocephalic, atraumatic, oropharynx moist, Eyes: conjunctiva normal, no discharge. [] Neck: Normal range of motion, no tenderness, supple, no stridor no lymphadenopathy. [] Cardiovascular:Heart rate regular rhythm, no murmur [] Lungs & Thorax: Bilateral breath sounds clear to auscultation [] Abdomen:soft, no tenderness, no masses, no pulsatile masses. [] Skin: Warm, dry, no erythema, no rash. [] Extremities: No tenderness, no cyanosis, no clubbing, ROM intact, no edema no obvious lymphadenopathy. [] Neurologic: Alert and oriented X 3, normal motor function, normal sensory function, no focal deficits noted. [] Psychologic: Affect normal, judgement normal, mood normal. [] EKG EKG [] Radiology/Procedures Radiology/Procedures [] Heart Score C/O Chest Pain: No Risk Factors: Risk Factors: DM, Current or recent (<one month) smoker, HTN, HLP, family history of CAD, obesity. Risk Scores: Risk Factors: DM, Current or recent (<one month) smoker, HTN, HLP, family history of CAD, obesity. Course & Med Decision Making Course & Med Decision Making Patient is a 36-year-old male who presents with reported bumps on his ribs and legs Vital signs nonconcerning. Physical exam noted above. Patient denies need for pain or nausea medicine Spots that patient pointed to on his ribs and legs may have some mild lymphadenopathy or chest normally slightly enlarged lymph nodes Advised to follow-up in the morning with his primary care physician and discussed the need for rheumatologic work-up and MRI. Gave return precautions to the ED. Patient grateful, verbalized understanding and agreed with plan of discharge. Dragon Disclaimer Dragon Disclaimer This electronic medical record was generated, in whole or in part, using a voice recognition dictation system. Departure Departure: Impression: Primary Impression: Lymphadenopathy Disposition: HOME / SELF CARE / HOMELESS Condition: GOOD Referrals: JOE ESCALONA MD (PCP) Additional Instructions: Thank you for coming into the emergency department tonight allowing us to take care of you. Please read the attached information carefully go over things we discussed. You can take Tylenol and ibuprofen as needed. As we discussed, you may have some reactive lymphadenopathy given your chronic infection with herpes but there are other things that can cause reactive lymphadenopathy. It is very important that you follow-up with your primary care physician and discuss need for rheumatology work-up and possible MRI to better define. Please follow-up in the morning with your primary care physician update on your ED visit. MARK EPSTEIN MD Dec 02, 2021 23:39
[2021-12-02 23:59] VITALS: BP 118/70
== END 2021-12-03 00:30 | disposition home or self-care (01) ==
LOC: ER 23:36
DX: R59.1 Generalized enlarged lymph nodes (principal)
CPT/HCPCS: 99282

== ENCOUNTER 2022-01-13 18:34 | Emergency (ER) | payer SELFPAY ==
[~2022-01-13] VITALS: Ht 188 cm; Wt 90.1 kg
--- NOTE | 2022-01-13 18:38 | PHYS DOC ---
Past History Past Medical History: No Pertinent History Additional Past Medical Histor: HERPES Past Surgical History: No Surgical History Alcohol Use: Rarely Adult General HPI HPI Patient is an otherwise healthy 36-year-old male who presents with chest pain, sharp in nature, intermittent episodes with 2 episodes earlier today lasting a few seconds with no recent dyspnea on exertion, orthopnea, PND or edema. States here in the ED is having no pain. States that he has had a history of atrial fibrillation in the past secondary to methamphetamine use but quit doing that months ago. States he had a recent echo which was absolutely normal. States he is eating and drinking normally. States he is making urine and stool normally for him. Denies any alcohol or drug use. Denies any caffeine use. Denies any family history of early cardiac disease. Review of Systems Review of Systems Review of systems otherwise unremarkable except noted in HPI Allergies Allergies Allergies Coded Allergies Type Severity Reaction Last Updated Verified No Known Drug Allergies 11/06/21 No Physical Exam Physical Exam Constitutional: Well developed, well nourished, no acute distress, non-toxic appearance. [] HENT: Normocephalic, atraumatic, bilateral external ears normal, oropharynx moist, no oral exudates, nose normal. [] Eyes: conjunctiva normal, no discharge. [] Neck: Normal range of motion, no tenderness, supple, no stridor. [] Cardiovascular:Heart rate regular rhythm, no murmur [] Lungs & Thorax: Bilateral breath sounds clear to auscultation [] Abdomen: soft, no tenderness, no masses, no pulsatile masses. [] Skin: Warm, dry, no erythema, no rash. [] Back: No tenderness, no CVA tenderness. [] Extremities: No tenderness, no cyanosis, no clubbing, ROM intact, no edema. [] Neurologic: Alert and oriented X 3, able to sit, stand and walk without issue,, no focal deficits noted. [] Psychologic: Affect normal, judgement normal, mood normal. [] EKG EKG [] Radiology/Procedures Radiology/Procedures [] Heart Score C/O Chest Pain: Yes HEART Score for Chest Pain: HEART Score for Chest Pain Response (Comments) Value History Slighlty/Non-Suspicious 0 ECG Normal 0 Age < 45 0 Risk Factors 1 or 2 Risk Factors 1 Troponin < Normal Limit 0 Total 1 Risk Factors: Risk Factors: DM, Current or recent (<one month) smoker, HTN, HLP, family history of CAD, obesity. Risk Scores: Risk Factors: DM, Current or recent (<one month) smoker, HTN, HLP, family history of CAD, obesity. Course & Med Decision Making Course & Med Decision Making Patient is a 36-year-old male presents with chest pain Vital signs not concerning. Physical exam noted above. EKG with a rate of 70, QRS of 94, QTc 391. No STEMI. Troponin normal. Chest x-ray nonconcerning. Patient asymptomatic. Discussed all findings with patient. Advised to follow-up first thing in the morning with his primary care physician to discuss ED visit and set up further evaluation and treatment. Gave return precautions to the ED. Patient grateful, verbalized understanding and agreed with plan of discharge. [] Dragon Disclaimer Dragon Disclaimer This electronic medical record was generated, in whole or in part, using a voice recognition dictation system. Departure Departure: Impression: Primary Impression: Chest pain Disposition: HOME / SELF CARE / HOMELESS Condition: STABLE Referrals: JOE ESCALONA MD (PCP) Patient Instructions: Chest Pain (Nonspecific) Additional Instructions: Thank you for coming into the emergency department tonight and allowing us to take care of you. Please read the attached information carefully over things we discussed. Please continue taking all of your medications as prescribed. Is very important you follow-up in the morning with your primary care physician to discuss your ED visit and set up a follow-up as soon as you can discuss need for further evaluation and treatment including a stress test. Please come back with new or concerning symptoms as we discussed. MARK EPSTEIN MD Jan 13, 2022 18:38
--- NOTE | 2022-01-13 18:59 | EKG ---
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
--- NOTE | 2022-01-13 19:59 | RAD ---
Exam: Chest one view INDICATION: Chest pain TECHNIQUE: Frontal view of the chest Comparisons: None FINDINGS: The cardiomediastinal silhouette and pulmonary vessels are within normal limits. The lung and pleural spaces are clear. IMPRESSION: No acute cardiopulmonary process. Electronically signed by: Tru Harrison MD (01/13/2022 7:56 PM) MARIANNA
[2022-01-13 20:10] VITALS: BP 116/84
== END 2022-01-13 20:12 | disposition home or self-care (01) ==
LOC: ER 18:34
DX: R07.89 Other chest pain (principal)
CPT/HCPCS: 36415; 71045; 84484; 93005; 99285-25

== ENCOUNTER 2022-01-24 05:34 | Emergency (ER) | payer SELFPAY | END 2022-01-24 06:08 | disposition left against medical advice (07) | LOC: ER 05:34 | DX: R51.9 Headache, unspecified (principal); Z53.21 Procedure and treatment not carried out due to patient leaving prior to being seen by health care provider ==

== ENCOUNTER 2022-01-29 11:44 | Emergency (ER) | payer SELFPAY ==
[~2022-01-29] VITALS: Ht 188 cm; Wt 90.1 kg
[2022-01-29 11:59] VITALS: BP 150/79
--- NOTE | 2022-01-29 12:13 | PHYS DOC ---
Past History Past Medical History: No Pertinent History Additional Past Medical Histor: HERPES (LOC LOGAN APRN) Past Surgical History: No Surgical History (LOC LOGAN APRN) Alcohol Use: None (LOC LOGAN APRN) General Adult EDM: Chief Complaint: NEURO SYMPTOMS/DEFICITS HPI: HPI: Patient is a 36-year-old male who presents to the emergency department today for left-sided facial droop. Patient reports last Tuesday he started experiencing left-sided facial droop and had a frontal headache and a nosebleed. He reports being seen on Tuesday in this emergency department. According to his records he left without being seen. Patient rates his pain 8 out of 10. No treatment prior to arrival. He is reporting photophobia. He denies any nausea, vomiting, phonophobia, thunderclap headache, nose bleeding. Patient denies any new medications. (LOC LOGAN APRN) Review of Systems: Review of Systems: Constitutional: Denies fevers Eyes: See HPI HENT: See HPI GI: See HPI Neurologic: See HPI (LOC LOGAN APRN) Allergies: Allergies: Allergies Coded Allergies Type Severity Reaction Last Updated Verified No Known Drug Allergies 11/06/21 No (LOC LOGAN APRN) Physical Exam: PE: Constitutional: Well developed, well nourished, no acute distress, non-toxic appearance. [] HENT: Normocephalic, atraumatic, bilateral external ears normal, oropharynx moist, no oral exudates, no facial droop, nose normal. [] Eyes: PERRL, 4 mm bilaterally, no nystagmus, EOMI, conjunctiva normal, no discharge. [] Neck: Normal range of motion, no tenderness, no neutral rigidity, supple, no stridor. [] Cardiovascular:Heart rate regular rhythm, no murmur [] Lungs & Thorax: Bilateral breath sounds clear to auscultation [] Abdomen: Bowel sounds normal, soft, no tenderness, no masses, no pulsatile masses. [] Skin: Warm, dry, no erythema, no rash. [] Back: No tenderness normal range of motion Extremities: No tenderness, no cyanosis, no clubbing, ROM intact, no edema. [] Neurologic: Alert and oriented X 3, normal motor function, normal sensory function, no focal deficits noted, no pronator drift, no limb ataxia, equal strength bilaterally no slurred speech, no facial droop. [] Psychologic: Affect normal, judgement normal, mood normal. [] (LOC LOGAN APRN) Current Patient Data: Vital Signs: Vital Signs Date Time Temp Pulse Resp B/P (MAP) Pulse Ox O2 Delivery O2 Flow Rate FiO2 01/29/22 11:59 98.1 79 16 150/79 (102) 95 Room Air (LOC LOGAN APRN) EKG: EKG: [] (LOC LOGAN APRN) Radiology/Procedures: Radiology/Procedures: [] (LOC LOGAN APRN) Heart Score: C/O Chest Pain: N/A Risk Factors: Risk Factors: DM, Current or recent (<one month) smoker, HTN, HLP, family history of CAD, obesity. Risk Scores: Score 0 - 3: 2.5% MACE over next 6 weeks - Discharge Home Score 4 - 6: 20.3% MACE over next 6 weeks - Admit for Clinical Observation Score 7 - 10: 72.7% MACE over next 6 weeks - Early Invasive Strategies (LOC LOGAN APRN) Course & Med Decision Making: Course & Med Decision Making Pertinent Labs and Imaging studies reviewed. (See chart for details) [] Patient presents to the emergency department for reported facial droop, slurred speech, frontal headache started on Tuesday. CT imaging of patient's head was performed. His NIH was 0. Patient's headache treated with migraine cocktail. He denies any thunderclap headache. [employer]ATE notified this [employer] ME[employer]IC and patient eloped from the emergency department prior to receiving treatment and imaging. (LOC LOGAN APRN) Dragon Disclaimer: Dragon Disclaimer: This electronic medical record was generated, in whole or in part, using a voice recognition dictation system. (LOC LOGAN APRN) NIH Stroke Scale: NIH Stroke Scale Response (Comments) Value Level of Consciousness: 0 Alert/Responsive 0 LOC Questions: 0 Answers both correctly 0 LOC Commands: 0 Performs both tasks 0 Best Gaze: 0 Normal 0 Visual: 0 No visual loss 0 Facial Palsy: 0 Normal, symmetrical 0 Motor - Left Arm 0 No drift 0 Motor - Right Arm 0 No drift 0 Motor - Left Leg 0 No drift 0 Motor: Right Leg 0 No drift 0 Limb Ataxia: 0 Absent 0 Sensory: 0 No loss 0 Best Language: 0 Normal 0 Dysathria: 0 Normal 0 Extinction and Inattention: 0 Normal 0 Total 0 Attending Co-Sign The patient was seen and interviewed as well as examined at the bedside. The chart was reviewed. The case was discussed. Agree with the plan of care. (CARLOTTA STEINBERG DO) Departure Departure: Impression: Primary Impression: Anxiety about health Disposition: 07 LEFT AWOL/ELOPED Condition: GUARDED Referrals: SANDY AGUERO DO (PCP) LOC LOGAN APRN Jan 29, 2022 12:13 CARLOTTA STEINBERG DO Jan 30, 2022 07:56
[2022-01-29] MEDS ORDERED: IV NORMAL SALINE 1,000ML 1,000 ML IV ONE (12:15)
[2022-01-29] MEDS ORDERED: diphenhydrAMINE 50 MG/ML VIAL IVP ONE (12:15)
[2022-01-29] MEDS ORDERED: PROCHLORPERAZINE 10 MG/2 ML VIAL. IV ONE (12:15)
[2022-01-29] MEDS ORDERED: KETOROLAC 30 MG/ML VIAL. IVP ONE (12:15)
== END 2022-01-29 12:45 | disposition left against medical advice (07) ==
LOC: ER 11:44
DX: F41.9 Anxiety disorder, unspecified (principal)
CPT/HCPCS: 99281

== ENCOUNTER 2022-01-29 16:08 | Emergency (ER) | payer SELFPAY ==
[~2022-01-29] VITALS: Ht 188 cm; Wt 90.1 kg
[2022-01-29 16:27] VITALS: BP 150/79
[2022-01-29] MEDS ORDERED: KETOROLAC 30 MG/ML VIAL. IVP ONE (16:30)
[2022-01-29] MEDS ORDERED: PROCHLORPERAZINE 10 MG/2 ML VIAL. IV ONE (16:30)
[2022-01-29] MEDS ORDERED: IV NORMAL SALINE 1,000ML 1,000 ML IV ONE (16:30)
[2022-01-29] MEDS ORDERED: diphenhydrAMINE 50 MG/ML VIAL IVP ONE (16:30)
--- NOTE | 2022-01-29 16:33 | PHYS DOC ---
Past History Past Medical History: No Pertinent History Additional Past Medical Histor: HERPES (LOC LOGAN APRN) Past Surgical History: No Surgical History (LOC LGOAN APRN) Alcohol Use: None (LOC LOGAN APRN) General Adult EDM: Chief Complaint: HEADACHE HPI: HPI: Patient is a 36-year-old male who presents to the emergency department for a headache. I saw patient earlier this afternoon for similar complaints. Please see HPI at that time. Patient is a 36-year-old male who presents to the emergency department today for left-sided facial droop. Patient reports last Tuesday he started experiencing left-sided facial droop and had a frontal headache and a nosebleed. He reports being seen on Tuesday in this emergency department. According to his records he left without being seen. Patient rates his pain 8 out of 10. No treatment prior to arrival. He is reporting photophobia. He denies any nausea, vomiting, phonophobia, thunderclap headache, nose bleeding. Patient denies any new medications. (LOC LOGAN APRN) Review of Systems: Review of Systems: Eyes: See HPI HENT: See HPI GI: See HPI Neurologic: See HPI (LOC LOGAN APRN) Current Medications: Current Meds: Current Medications Medications (Trade) Dose Ordered Sig/Lena Start Time Stop Time Status Last Admin Dose Admin Diphenhydramine HCl (Benadryl) 25 mg 1X ONCE 01/29/22 16:30 01/29/22 16:31 UNV Ketorolac Tromethamine (Toradol 30mg Vial) 30 mg 1X ONCE 01/29/22 16:30 01/29/22 16:31 UNV Prochlorperazine Edisylate (Compazine) 10 mg 1X ONCE 01/29/22 16:30 01/29/22 16:31 UNV Sodium Chloride 1,000 ml @ 1,000 mls/hr 1X ONCE 01/29/22 16:30 01/29/22 17:29 UNV (LOC LOGAN APRN) Allergies: Allergies: Allergies Coded Allergies Type Severity Reaction Last Updated Verified No Known Drug Allergies 11/06/21 No (LOC LOGAN APRN) Physical Exam: PE: Constitutional: Well developed, well nourished, no acute distress, non-toxic appearance. [] HENT: Normocephalic, atraumatic, bilateral external ears normal, oropharynx moist, no oral exudates, nose normal. [] Eyes: PERRL, EOMI, conjunctiva normal, no discharge. [] Neck: Normal range of motion, no tenderness, supple, no neck rigidity, no stridor. [] Cardiovascular:Heart rate regular rhythm, no murmur [] Lungs & Thorax: Bilateral breath sounds clear to auscultation [] Abdomen: Bowel sounds normal, soft, no tenderness, no masses, no pulsatile masses. [] Skin: Warm, dry, no erythema, no rash. [] Back: No tenderness, motion Extremities: No tenderness, no cyanosis, no clubbing, ROM intact, no edema. [] Neurologic: Alert and oriented X 3, normal motor function, normal sensory function, no focal deficits noted. [] Psychologic: Affect normal, judgement normal, mood normal. [] (LOC LOGAN APRN) EKG: EKG: [] (LOC LOGAN APRN) Radiology/Procedures: Radiology/Procedures: []PROCEDURE: CT HEAD WO CONTRAST CT HEAD/BRAIN WO History: Reason: "facial droop" headache / Spl. Instructions: / History: Comparison: None. Technique: Noncontrast CT imaging was performed of the head. Exposure: One or more of the following individualized dose reduction techniques were utilized for this examination: 1. Automated exposure control 2. Adjustment of the mA and/or kV according to patient size 3. Use of iterative reconstruction technique. Findings: No intracranial hemorrhage. No mass effect. No hydrocephalus. Extra-axial spaces are unremarkable. Imaged orbits are unremarkable. Imaged paranasal sinuses and mastoid air cells are clear. No acute calvarial fracture. Impression: 1. No acute intracranial abnormality. Electronically signed by: Landon Flores DO (01/29/2022 4:50 PM) [facility] DICTATED AND SIGNED BY: LANDON FLORES DO DATE: 01/29/221645 CC: SANDY AGUERO DO; LOC LOGAN APRN ~ (LOC LOGAN APRN) Heart Score: C/O Chest Pain: N/A Risk Factors: Risk Factors: DM, Current or recent (<one month) smoker, HTN, HLP, family history of CAD, obesity. Risk Scores: Score 0 - 3: 2.5% MACE over next 6 weeks - Discharge Home Score 4 - 6: 20.3% MACE over next 6 weeks - Admit for Clinical Observation Score 7 - 10: 72.7% MACE over next 6 weeks - Early Invasive Strategies (LOC LOGAN APRN) Course & Med Decision Making: Course & Med Decision Making Pertinent Labs and Imaging studies reviewed. (See chart for details) [] Patient resents to the emergency department for frontal headache. Work-up in the ER consisted of CT scan of patient's head and migraine cocktail treatment. Patient previously left AGAINST MEDICAL ADVICE and eloped from the emergency department. Patient is very anxious and is wondering how long it is going to take for him to get his CT scan as soon as I walked into his room. Patient CT scan showed no acute findings. Patient is refusing migraine cocktail. He states "I will just take something when I get home". I discussed with patient all findings and diagnostic testing as well as the need to follow-up with PCP for further evaluation and treatment or return to the ER if any new or worsening symptoms. Strict return precautions were also discussed at length. Patient voiced understanding and agreement with the plan. Patient is hemodynamically stable at the time of disposition. (LOC LOGAN APRN) Dragon Disclaimer: Dragon Disclaimer: This electronic medical record was generated, in whole or in part, using a voice recognition dictation system. (LOC LOGAN APRN) Attending Co-Sign The patient was seen and interviewed as well as examined at the bedside. The chart was reviewed. The case was discussed. Agree with the plan of care. (CARLOTTA STEINBERG DO) Departure Departure: Impression: Primary Impression: Headache Qualified Codes: R51.9 - Headache, unspecified Disposition: HOME / SELF CARE / HOMELESS Condition: GOOD Referrals: SANDY AGUERO DO (PCP) Patient Instructions: General Headache Without Cause Additional Instructions: You were seen in the emergency department today for headache. CT scan of your head showed no acute findings. You are offered treatment with a migraine cocktail which she refused. Please take Tylenol and ibuprofen at home. Increas e your fluids. Follow-up with your primary care provider tomorrow regarding your ER visit. Return to the emergency department if you develop worsening of your head pain, intractable nausea or vomiting, vision changes or loss of vision, poor coordination, inability to bear weight or walk, speech changes such as slurred speech, high fevers refractory to treatment or any new or worsening concerns. LOC LOGAN APRN Jan 29, 2022 16:33 CARLOTTA STEINBERG DO Jan 30, 2022 08:01
--- NOTE | 2022-01-29 16:53 | RAD ---
CT HEAD/BRAIN WO History: Reason: "facial droop" headache / Spl. Instructions: / History: Comparison: None. Technique: Noncontrast CT imaging was performed of the head. Exposure: One or more of the following individualized dose reduction techniques were utilized for thi s examination: 1. Automated exposure control 2. Adjustment of the mA and/or kV according to patient size 3. Use of iterative reconstruction technique. Findings: No intracranial hemorrhage. No mass effect. No hydrocephalus. Extra-axial spaces are unremarkable. Imaged orbits are unremarkable. Imaged paranasal sinuses and mastoid air cells are clear. No acute ca lvarial fracture. Impression: 1. No acute intracranial abnormality. Electronically signed by: Landon Flores DO (01/29/2022 4:50 PM) [facility]
== END 2022-01-29 17:22 | disposition home or self-care (01) ==
LOC: ER 16:08
DX: R51.9 Headache, unspecified (principal); R29.810 Facial weakness; R04.0 Epistaxis
CPT/HCPCS: 70450; 99284